=== PATIENT | female | born 1975 | race Caucasian/White ===

== ENCOUNTER 2016-09-26 21:48 | Emergency (ER) | payer SELFPAY ==
[2016-09-26] MEDS ORDERED: Aspirin Low Dose CHEW TAB* 81 MG PO ONE (22:22)
[2016-09-26] MEDS ORDERED: NS 0.9% 1000 ML* 1,000 ML IV ONE (22:36)
[2016-09-26 22:49] LABS: Hematocrit 40 % (35-47); Mean Corpuscular HGB Conc 33 g/dl (31-36); Mean Corpuscular Hemoglobin 27 pg (27-31); Mean Corpuscular Volume 81 fL (80-97); Mean Platelet Volume 9 um3 (7.4-10.4); Red Blood Count 4.89 10^6/ul (4.0-5.4); Red Cell Distribution Width 16 % (10.5-15); White Blood Count 5.7 10^3/ul (3.5-10.8)
--- NOTE | 2016-09-26 22:54 | RAD ---
HISTORY: Chest pain COMPARISONS: March 11, 2010 VIEWS:1: Single frontal portable view of the chest at 10:45 PM FINDINGS: LINES AND TUBES: None. CARDIOMEDIASTINAL SILHOUETTE: The cardiomediastinal silhouette is normal for portable technique. PLEURA: The costophrenic angles are sharp. No pleural abnormalities are noted. LUNG PARENCHYMA: The lungs are clear. ABDOMEN: The upper abdomen is clear. There is no subphrenic gas. BONES AND SOFT TISSUES: No bone or soft tissue abnormalities are noted. IMPRESSION: NO ACTIVE CARDIOPULMONARY DISEASE.
[2016-09-26 23:04] LABS: ALT 22 U/L (7-52); AST 20 U/L (13-39); Albumin 3.8 g/dL (3.2-5.2); Alkaline Phosphatase 48 U/L (34-104); Anion Gap 5 mmol/L (2-11); BUN/Creatinine Ratio 10.1 (8-20); Blood Urea Nitrogen 7 mg/dL (6-24); CO2 Carbon Dioxide 26 mmol/L (22-32); Calcium 8.6 mg/dL (8.6-10.3); Chloride 105 mmol/L (101-111); EGFR African American 119.4 (>60); EGFR Non-African American 92.9 (>60); Globulin 3.3 g/dL (2-4); Glucose 91 mg/dL (70-100); Potassium 3.8 mmol/L (3.5-5.0); Sodium 136 mmol/L (133-145); Total Protein 7.1 g/dL (6.4-8.9)
[2016-09-26] MEDS ORDERED: Iohexol 350* (CONTRAST) 500 ML MDV IV ONE (23:13)
[2016-09-27 00:48] VITALS: BP 135/82
--- NOTE | 2016-09-27 01:01 | ED ---
Chance Mendenhall Claudia, scribed for Jennifer Kinsey MD on 09/26/16 at 2241 . HPI Chest Pain - HPI Summary HPI Summary: 41 year old female presents to the ED with CP/ SOB, cough and left calf pain. Pt notes sudden onset of Sx yesterday which have been constant since Pt notes the CP to be tightness but the discomfort is in the inability to breath normally. Pt notes the pain happened when she was at work and not during any exertion. She notes she had skin diaphoresis during the onset of Sx yesterday. She also mentions that she attributed the calf pain to working more recently. Pt notes the CP radiated to her back and is aggravated with deep breaths. - History of Current Complaint Chief Complaint: EDChestPainROMI Time Seen by Provider: 09/26/16 22:22 Hx Obtained From: Patient Onset/Duration: Started Days Ago, Still Present Timing: Constant Pain Intensity: 5 Pain Scale Used: 0-10 Numeric Chest Pain Location: Diffuse - bilateral Chest Pain Radiates: Yes Chest Pain Radiates To:: Back Character: Tightness Aggravating Factor(s): Deep Breaths Alleviating Factor(s): Nothing Associated Signs and Symptoms: Positive: Chest Pain, Shortness of Breath, Diaphoresis - Allergy/Home Medications Allergies/Adverse Reactions: Allergies Allergy/AdvReac Type Severity Reaction Status Date / Time Aspartame Allergy Difficulty Verified 09/26/16 22:26 Swallowing Aspirin Allergy Shortness Verified 09/26/16 22:26 of Breath PMH/Surg Hx/FS Hx/Imm Hx Previously Healthy: Yes Endocrine/Hematology History: Denies: Hx Diabetes Cardiovascular History: Reports: Hx Hypertension Infectious Disease History: No Infectious Disease History: Denies: Traveled Outside the [place] in Last 30 Days - Family History Known Family History: Positive: Cardiac Disease Family History: PE - Social History Occupation: Employed Full-time Alcohol Use: None Substance Use Type: Reports: None Smoking Status (MU): Light Every Day Tobacco Smoker Review of Systems Positive: Skin Diaphoresis Eyes: Negative ENT: Negative Positive: Chest Pain Positive: Shortness Of Breath, Cough Gastrointestinal: Negative Genitourinary: Negative Musculoskeletal: Negative Skin: Negative Neurological: Negative Psychological: Normal All Other Systems Reviewed And Are Negative: Yes Physical Exam Triage Information Reviewed: Yes Vital Signs On Initial Exam: Initial Vitals Temp Pulse Resp BP Pulse Ox 97.7 F 109 20 157/105 97 09/26/16 21:55 09/26/16 21:55 09/26/16 21:55 09/26/16 21:55 09/26/16 21:55 Vital Signs Reviewed: Yes Appearance: Positive: Well-Appearing, No Pain Distress Skin: Positive: Warm, Skin Color Reflects Adequate Perfusion, Dry Eyes: Positive: EOMI, [place] Neck: Positive: Supple, Nontender Respiratory/Lung Sounds: Positive: Clear to Auscultation, Breath Sounds Present , Decreased Breath Sounds. Negative: Rales, Rhonchi, Wheezes Cardiovascular: Positive: RRR. Negative: Murmur, Rub, Leg Edema Left, Leg Edema Right Abdomen Description: Positive: Nontender, Soft. Negative: Distended, Guarding Musculoskeletal: Positive: Strength/ROM Intact Neurological: Positive: Sensory/Motor Intact, Alert, Oriented to Person Place, Time, CN Intact II-III Psychiatric: Positive: Affect/Mood Appropriate - David Coma Scale Coma Scale Total: 15 Diagnostics - Vital Signs Vital Signs Temp Pulse Resp BP Pulse Ox 09/26/16 22:29 14 09/26/16 22:20 98.8 F 97 14 163/111 95 09/26/16 22:18 15 09/26/16 22:16 163/111 09/26/16 21:55 97.7 F 109 20 157/105 97 - Laboratory Lab Results: Lab Results 09/26/16 09/26/16 09/26/16 Range/Units 22:40 22:40 22:40 WBC 5.7 (3.5-10.8) 10^3/ul RBC 4.89 (4.0-5.4) 10^6/ul Hgb 13.0 (12.0-16.0) g/dl Hct 40 (35-47) % MCV 81 (80-97) fL MCH 27 (27-31) pg MCHC 33 (31-36) g/dl RDW 16 H (10.5-15) % Plt Count 184 (150-450) 10^3/ul MPV 9 (7.4-10.4) um3 Neut % (Auto) 65.9 (38-83) % Lymph % (Auto) 21.1 L (25-47) % Bath % (Auto) 10.8 H (1-9) % Eos % (Auto) 1.5 (0-6) % Baso % (Auto) 0.7 (0-2) % Absolute Neuts (auto) 3.7 (1.5-7.7) 10^3/ul Absolute Lymphs (auto) 1.2 (1.0-4.8) 10^3/ul Absolute Monos (auto) 0.6 (0-0.8) 10^3/ul Absolute Eos (auto) 0.1 (0-0.6) 10^3/ul Absolute Basos (auto) 0 (0-0.2) 10^3/ul Absolute Nucleated RBC 0 10^3/ul Nucleated RBC % 0 D-Dimer, Quantitative < 200 (Less Than 230) ng/mL Sodium 136 (133-145) mmol/L Potassium 3.8 (3.5-5.0) mmol/L Chloride 105 (101-111) mmol/L Carbon Dioxide 26 (22-32) mmol/L Anion Gap 5 (2-11) mmol/L BUN 7 (6-24) mg/dL Creatinine 0.69 (0.51-0.95) mg/dL Est GFR ( Amer) 119.4 (>60) Est GFR (Non-Af Amer) 92.9 (>60) BUN/Creatinine Ratio 10.1 (8-20) Glucose 91 (70-100) mg/dL Lactic Acid (0.5-2.0) mmol/L Calcium 8.6 (8.6-10.3) mg/dL Total Bilirubin 0.30 (0.2-1.0) mg/dL AST 20 (13-39) U/L ALT 22 (7-52) U/L Alkaline Phosphatase 48 (34-104) U/L Troponin I 0.00 (<0.04) ng/mL Total Protein 7.1 (6.4-8.9) g/dL Albumin 3.8 (3.2-5.2) g/dL Globulin 3.3 (2-4) g/dL Albumin/Globulin Ratio 1.2 (1-3) Beta HCG, Quant < 0.60 mIU/mL 09/26/16 Range/Units 22:40 WBC (3.5-10.8) 10^3/ul RBC (4.0-5.4) 10^6/ul Hgb (12.0-16.0) g/dl Hct (35-47) % MCV (80-97) fL MCH (27-31) pg MCHC (31-36) g/dl RDW (10.5-15) % Plt Count (150-450) 10^3/ul MPV (7.4-10.4) um3 Neut % (Auto) (38-83) % Lymph % (Auto) (25-47) % Bath % (Auto) (1-9) % Eos % (Auto) (0-6) % Baso % (Auto) (0-2) % Absolute Neuts (auto) (1.5-7.7) 10^3/ul Absolute Lymphs (auto) (1.0-4.8) 10^3/ul Absolute Monos (auto) (0-0.8) 10^3/ul Absolute Eos (auto) (0-0.6) 10^3/ul Absolute Basos (auto) (0-0.2) 10^3/ul Absolute Nucleated RBC 10^3/ul Nucleated RBC % D-Dimer, Quantitative (Less Than 230) ng/mL Sodium (133-145) mmol/L Potassium (3.5-5.0) mmol/L Chloride (101-111) mmol/L Carbon Dioxide (22-32) mmol/L Anion Gap (2-11) mmol/L BUN (6-24) mg/dL Creatinine (0.51-0.95) mg/dL Est GFR ( Amer) (>60) Est GFR (Non-Af Amer) (>60) BUN/Creatinine Ratio (8-20) Glucose (70-100) mg/dL Lactic Acid 0.6 (0.5-2.0) mmol/L Calcium (8.6-10.3) mg/dL Total Bilirubin (0.2-1.0) mg/dL AST (13-39) U/L ALT (7-52) U/L Alkaline Phosphatase (34-104) U/L Troponin I (<0.04) ng/mL Total Protein (6.4-8.9) g/dL Albumin (3.2-5.2) g/dL Globulin (2-4) g/dL Albumin/Globulin Ratio (1-3) Beta HCG, Quant mIU/mL Result Diagrams: 09/26/16 22:40 09/26/16 22:40 Lab Statement: Any lab studies that have been ordered have been reviewed, and results considered in the medical decision making process. - Radiology CXR Xray Interpretation: No Acute Changes - NO ACTIVE CARDIOPULMONARY DISEASE Radiology Interpretation Completed By: Radiologist - CT CHEST CTA CT Interpretation: No Acute Changes - NO EVIDENCE OF ACUTE PATHOLOGY CT Interpretation Completed By: Radiologist - EKG 2202 Cardiac Rate: NL EKG Rhythm: Sinus Rhythm - 102 beats/min EKG Interpretation: NO PVC - Additional Comments Diagnostic Additional Comments: VL: Left lower leg: Radiologist impression: NO DVT Re-Evaluation - Re-Evaluation 1 Re-Evaluation Time: 00:10 Change: Improved - PT IS FELLING BETTER AFTER DISCUSSING RESULTS AND IS READY TO BE D/C HOME WITH F/U WITH PCP. Chest Pain Course/Dx - Course Course Of Treatment: pt with strong fam hx of pe along with left calf pain with neg pe and dvt workup and neg trop pt will f/u with an outpt stress test - Diagnoses Provider Diagnoses: Chest pain Discharge - Discharge Plan Condition: Stable Disposition: HOME Patient Education Materials: Chest Pain (ED) Forms: *Work Release Referrals: [facility] [Outside] - 2 Days (PLEASE FOLLOW-UP WITH A PRIMARY CARE PROVIDER. ) The documentation as recorded by the Chance allison Claudia accurately reflects the service I personally performed and the decisions made by me, Jennifer Kinsey MD.
--- NOTE | 2016-09-27 07:55 | RAD ---
HISTORY: Left ankle swelling x1 week TECHNIQUE: Multiple transverse and longitudinal ultrasound images were obtained of the veins of the left lower extremity using grayscale, color Doppler, and spectral Doppler imaging with and without compression and with augmentation. FINDINGS: VEINS: The common femoral vein, deep femoral vein, femoral vein and popliteal vein are compressible throughout their course, with normal flow on color Doppler imaging and normal response to augmentation on spectral Doppler imaging. SOFT TISSUES: Grossly normal. No large popliteal fossa cyst was identified. IMPRESSION: No sonographic evidence of deep vein thrombosis.
--- NOTE | 2016-09-27 07:58 | RAD ---
INDICATION: Shortness of breath COMPARISON: None TECHNIQUE: Axial source images were acquired following the administration of 80 mL Omnipaque [address] angiographic technique. Coronal and sagittal reconstructed images were constructed and reviewed. FINDINGS: There there are no filling defects in the pulmonary arteries to indicate acute pulmonary embolic disease. There are no focal infiltrates or effusions. There are no pulmonary parenchymal masses. The heart is normal in size. There is no evidence of pericardial effusion. There is no evidence of aortic aneurysm or dissection. There is no mediastinal, hilar, or axillary lymphadenopathy. The visualized osseous structures appear normal. Surgical clips in the gallbladder fossa are consistent with a history of cholecystectomy. IMPRESSION: No CT of evidence of pulmonary embolism or any other acute thoracic abnormality.
== END 2016-09-27 00:47 | disposition home or self-care (01) ==
LOC: ED 21:48
DX: R07.9 Chest pain, unspecified (principal); R06.02 Shortness of breath; R05 Cough; M79.605 Pain in left leg; F17.210 Nicotine dependence, cigarettes, uncomplicated
CPT/HCPCS: 36415; 71010; 71275; 80053; 83605; 84484; 84702; 85025; 85379; 93005; 99282; Q9967

== ENCOUNTER 2016-10-05 07:31 | Emergency (ER) | payer SELFPAY ==
[2016-10-05] MEDS ORDERED: NS 0.9% 1000 ML* 1,000 ML IV ONE (07:46)
[2016-10-05] MEDS ORDERED: Ketorolac INJ* 30 MG/ML 1 ML VIAL IV ONE (07:46)
--- NOTE | 2016-10-05 08:21 | RAD ---
INDICATION: Right flank pain COMPARISON: None TECHNIQUE: Noncontrast axial source images were acquired from the level hemidiaphragms to the symphysis pubis as part of CT imaging for renal stone. Lung bases: The lung bases are clear. Liver: The liver is normal in size. Noncontrast imaging shows no evidence of a hepatic mass or ductal dilatation. Gallbladder: Cholecystectomy. Spleen: The spleen is normal in size. The noncontrast CT appearance is normal. Pancreas: Noncontrast imaging shows no pancreatic mass or ductal dilitation. Adrenal glands: No masses are identified. Kidneys/Bladder: There is no evidence of nephrolithiasis or CT evidence of hydronephrosis. There are calcifications in the minor pelvis but these are believed to represent phleboliths Noncontrast imaging shows no evidence of a renal mass. The bladder is unremarkable.. Adenopathy: There is no evidence of intraperitoneal or retroperitoneal adenopathy. Evaluation is limited without oral contrast. Fluid collections: There are no free or localized fluid collections. Vessels: The aorta and iliac vessels are normal in caliber. There are no significant atherosclerotic changes. The IVC appears normal Pelvic organs: The uterus and adnexa appear normal GI tract: Evaluation of the bowel is limited without oral contrast. The stomach, small bowel, and lower GI tract appear grossly normal. There are no obstructive findings. The appendix is visualized and appears normal. Soft tissues: No soft tissue abnormalities of the extraperitoneal abdomen or pelvis are identified. Osseous structures: There are no acute osseous findings. IMPRESSION: NO CT EVIDENCE OF UROLITHIASIS.
[2016-10-05 09:04] LABS: Hematocrit 43 % (35-47); Mean Corpuscular HGB Conc 32 g/dl (31-36); Mean Corpuscular Hemoglobin 26 pg (27-31); Mean Corpuscular Volume 81 fL (80-97); Mean Platelet Volume 10 um3 (7.4-10.4); Red Blood Count 5.34 10^6/ul (4.0-5.4); Red Cell Distribution Width 16 % (10.5-15); White Blood Count 11.7 10^3/ul (3.5-10.8)
[2016-10-05 09:18] LABS: ALT 34 U/L (7-52); AST 24 U/L (13-39); Albumin 4.1 g/dL (3.2-5.2); Alkaline Phosphatase 51 U/L (34-104); Amylase 35 U/L (29-103); Anion Gap 8 mmol/L (2-11); BUN/Creatinine Ratio 12.7 (8-20); Blood Urea Nitrogen 9 mg/dL (6-24); C Reactive Protein 5.49 mg/L (< 5.00); CO2 Carbon Dioxide 23 mmol/L (22-32); Calcium 9.2 mg/dL (8.6-10.3); Chloride 102 mmol/L (101-111); Creatine Kinase 50 U/L (10-223); EGFR African American 115.5 (>60); EGFR Non-African American 89.8 (>60); Globulin 3.5 g/dL (2-4); Glucose 85 mg/dL (70-100); Lipase < 10 U/L (11.0-82.0); Potassium 3.3 mmol/L (3.5-5.0); Sodium 133 mmol/L (133-145); Total Protein 7.6 g/dL (6.4-8.9)
[2016-10-05] MEDS ORDERED: LORazepam INJ* 2 MG/ML 1 ML VIAL ONE (09:18)
[2016-10-05] MEDS ORDERED: Potassium Chlor TAB* 20 MEQ TAB.ER PO ONE (09:24)
[2016-10-05] MEDS ORDERED: Famotidine TAB* 20 MG PO ONE (10:07)
[2016-10-05] MEDS ORDERED: oxyCODONE/Acetamin 5/325 MG* TAB PO ONE (10:32)
[2016-10-05] MEDS ORDERED: Orphenadrine Citrate IV* 30 MG/ML 2 ML VIAL IM ONE (10:32)
[2016-10-05 10:42] LABS: Urine Bacteria Absent (Absent); Urine Bilirubin Negative (Negative); Urine Glucose Negative (Negative); Urine Nitrite Negative (Negative)
--- NOTE | 2016-10-05 11:18 | ED ---
Jewels Mendenhall Janilya, scribed for Fabián Olivas MD on 10/05/16 at 0750 . Abdominal Pain/Female - HPI Summary HPI Summary: A 41 y/o female came in to [facility] presenting w/ a gradual onset of waxing and waning right flank and mid lower back pain starting last Friday, September 28, 2016. It is worse when sitting or lying down at severity of 9/10. It is better when standing up at severity of 7/10 but pt gets nauseous and lightheaded. At this time, pt's severity is 8/10. The pain radiates; "it shoots right through into my right flank " pt states. It feels like "antionette and cramping". Pt has also vomited one time yesterday. Pt has never experienced these Sx before. However, she states she was seen here for SOB last week. Pt now thinks it was probably due to her current Sx. LNMP or 15 of September No PMHx of kidney stones. There is however FHx of kidney stones. PMHx HTN, GERD. PSHx gallbladder removed, tubes tied, and jaw surgery. SHx a pack every 2 days, no EtOH or drug use. - History of Current Complaint Chief Complaint: EDFlankPain Stated Complaint: RT FLANK PAIN Hx Obtained From: Patient Onset/Duration: Gradual Onset, Lasting Days, Still Present Timing: Constant Severity Initially: Moderate Severity Currently: Moderate Pain Intensity: 9 Pain Scale Used: 0-10 Numeric Location: Flank Radiates: Yes Character: Cramping Aggravating Factor(s): Other: - sitting down or lying down Alleviating Factor(s): Position Associated Signs and Symptoms: Positive: Back Pain, Nausea, Vomiting Allergies/Adverse Reactions: Allergies Allergy/AdvReac Type Severity Reaction Status Date / Time Aspartame Allergy Difficulty Verified 10/05/16 08:31 Swallowing Aspirin Allergy Shortness Verified 10/05/16 08:31 of Breath PMH/Surg Hx/FS Hx/Imm Hx Previously Healthy: Yes Endocrine/Hematology History: Denies: Hx Diabetes Cardiovascular History: Reports: Hx Hypertension Respiratory History: Denies: Hx Asthma GI History: Reports: Hx Gastroesophageal Reflux Disease History: Denies: Hx Kidney Stones, Hx Renal Disease Infectious Disease History: No Infectious Disease History: Denies: Traveled Outside the [place] in Last 30 Days - Family History Known Family History: Positive: Cardiac Disease, Other - kidney stones Family History: PE - Social History Alcohol Use: None Substance Use Type: Reports: None Smoking Status (MU): Light Every Day Tobacco Smoker Review of Systems Positive: Vomiting, Nausea Positive: flank pain - R sided flank pain Positive: Arthralgia - mid lower back pain, Myalgia - mid lower back pain Neurological: Other - lightheadedness All Other Systems Reviewed And Are Negative: Yes Physical Exam - Summary Physical Exam Summary: VITAL SIGNS: Reviewed. GENERAL: Patient is an obese female who is lying comfortable in the stretcher. Patient is not in any acute respiratory distress. HEAD AND FACE: Normocephalic and atraumatic. EYES: PERRLA, EOMI x 2, No injected conjunctiva. EARS: Hearing grossly intact. Ear canals and tympanic membranes are WNL. MOUTH: Oropharynx within normal limits. NECK: Supple, trachea is midline, no adenopathy, no JVD. CHEST: Symmetric, no tenderness at palpation LUNGS: Clear to auscultation bilaterally. No wheezing or crackles. CVS: RRR,, S1 and S2 present, no murmurs or gallops appreciated. ABDOMEN: Soft, non-tender. No signs of distention. Positive bowel sounds. No rebound no guarding, and no masses palpated. No abdominal bruit or pulsations. Positive right CVAT's EXTREMITIES: FROM in all major joints, no edema, no cyanosis or clubbing. NEURO: Alert and oriented x 3. No acute neurological deficits. Speech is normal. SKIN: Dry and warm Triage Information Reviewed: Yes Vital Signs On Initial Exam: Initial Vitals Temp Pulse Resp BP 96.6 F 110 18 155/116 10/05/16 07:33 10/05/16 07:33 10/05/16 07:33 10/05/16 07:33 Vital Signs Reviewed: Yes Diagnostics - Vital Signs Vital Signs Temp Pulse Resp BP Pulse Ox 10/05/16 07:35 96.6 F 111 18 155/116 98 10/05/16 07:33 96.6 F 110 18 155/116 - Laboratory Result Diagrams: 10/05/16 08:20 10/05/16 08:20 Lab Statement: Any lab studies that have been ordered have been reviewed, and results considered in the medical decision making process. - CT abd/pel CT Interpretation: No Acute Changes - IMPRESSION: NO CT EVIDENCE OF UROLITHIASIS CT Interpretation Completed By: Radiologist - EKG 1032 Cardiac Rate: NL - 80 bpm EKG Rhythm: Sinus Rhythm EKG Interpretation: No ST elevations Abdominal Pain Fem Course/Dx - Course Course Of Treatment: A 41 y/o female came in to [facility] presenting w/ a gradual onset of waxing and waning right flank and mid lower back pain starting last Friday, September 28, 2016. It is worse when sitting or lying down at severity of 9 /10. It is better when standing up at severity of 7/10 but pt gets nauseous and lightheaded. At this time, pt's severity is 8/10. The pain radiates; "it shoots right through into my right flank" pt states. It feels like "contractions and cramping". Pt has also vomited one time yesterday. Pt has never experienced these Sx before. However, she states she was seen here for SOB last week. Pt now thinks it was probably due to her current Sx. Since patient has positive CVATs I will order an abdominal and pelvic CT w/o contrast to r/o Kidney stone , ureteral stone, renal colic. I have los suspicion for AAA since patient has no pulsating masses in the abdomen, colitis, diverticulitis or appendicitis. Blood test are found within normal limits. Abdominal and pelvic CT IMPRESSION: NO CT EVIDENCE OF UROLITHIASIS. In the ED course patient was given IVF and Toradol For pain. After medications she is feeling better. Patient had a Chest CT on 09/26/16 which was negative for PE. She had a CXR on 09/26/16 which was also negative for acute disease. I believe most of her symptoms are secondary to back / musculoskeletal etiology. Patient developed GERD and she was given pepcid. SHe was also given Norflex and a percocet por back pain. After medication she is able to ambulate well and minimal discomfort. She is more comfortable. Patient will be discharged home. I discussed all the findings and test results with the patient. Patient was instructed to return to the emergency room immediately if any of the symptoms return or worsens. They were explained the possibility of an early abdominal pathology which was not detected at this time despite the physical exam and testing. They understand and agree. Abdominal exam before discharge: Soft, NT. No signs of distention. BS present. No rebound no guarding, and no masses palpated. Patient is alert and oriented and hemodynamically stable. Patient is to follow up with primary care physician in the next 2 to 3 days. Patient agree and understands. - Diagnoses Differential Diagnosis: Positive: Constipation, Pancreatitis, Renal Colic, Urinary Tract Infection Provider Diagnoses: Back pain Discharge - Discharge Plan Condition: Stable Disposition: HOME Prescriptions: HYDROcodone/ACETAMIN 5-325 MG* [[place] 5-325 TAB*] 1 tab PO Q8H PRN #10 tab MDD max 4 tabs/ day PRN Reason: Pain Ibuprofen TAB* [Motrin TAB* 600 MG] 600 mg PO Q8H PRN #20 tab PRN Reason: Pain Methocarbamol TAB* [Robaxin TAB*] 750 mg PO TID #12 tab Patient Education Materials: Back Pain (ED), Flank Pain (ED) Referrals: No Primary Care Phys,NOPCP [Primary Care Provider] - The documentation as recorded by the Jewels allison Janilya accurately reflects the service I personally performed and the decisions made by Brendon hearn Walter, MD.
[2016-10-05 12:45] VITALS: BP 153/90
== END 2016-10-05 14:28 | disposition home or self-care (01) ==
LOC: ED 07:31
DX: M54.9 Dorsalgia, unspecified (principal); R10.84 Generalized abdominal pain; R11.2 Nausea with vomiting, unspecified; R42 Dizziness and giddiness
CPT/HCPCS: 36415; 74176; 80053; 81003; 81015; 82150; 82550; 83690; 84702; 85025; 86140; 87086; 93005; 96374; 96375; 99284; A9270-GY; J1885; J2060; J2360